=== PATIENT | female | born 1935 | race Caucasian/White ===

== ENCOUNTER 2019-11-06 10:21 | Inpatient (IN) ==
[2019-11-06] MEDS ORDERED: SALINE LOCK IV FLUID XX ONE (11:57)
--- NOTE | 2019-11-06 12:10 | EKG Report ---
Test Performed on : 11/06/2019 12:03:07 PM Test Reason : chest congestion Blood Pressure : / mmHG Vent. Rate : 077 BPM Atrial Rate : 077 BPM P-R Int : 136 ms QRS Dur : 086 ms QT Int : 372 ms P-R-T Axes : 077 -18 073 degrees QTc Int : 420 ms Normal sinus rhythm. with sinus arrhythmia. Normal ECG No previous ECGs available Confirmed by Forest Hsieh MD ([id number]) on 11/08/2019 5:14:45 PM
--- NOTE | 2019-11-06 12:17 | Diag Imaging Result Doc PS360 ---
EXAM: CHEST-PORTABLE 11/06/2019 HISTORY: chest congestion TECHNIQUE: AP portable upright at 1202 COMMENT: There are scattered nodules present in both lungs. This is particularly true around the lingula obscuring portions of the apex of the left ventricle. There is a hiatal hernia. There are atherosclerotic calcifications in the aortic arch. There are no previous studies available for comparison. IMPRESSION: Multiple pulmonary nodules bilaterally which may be related to granulomatous disease. Comparison with previous studies would be helpful however. Electronically signed by Misbah Zendejas 11/06/2019 12:15 PM
[2019-11-06 12:52] LABS: BASO# 0.02 X1000 (0.0-0.2); BASO% 0.2 % (0.0-0.8); EOS# 0.07 X1000 (0.0-0.7); EOS% 0.8 % (0.0-10.0); HEMOGLOBIN 11.3 g/dL (12.0-16.0); IMM GRAN# 0.03 X1000 (0.0-0.04); IMM GRAN% 0.3 % (0.0-0.5); LYMPH% 15.7 % (20.5-51.1); MCH 31.7 PG (27-31); MCHC 32.3 g/dL (33-37); MONO# 0.99 X1000 (0.11-0.59); MONO% 11.1 % (1.7-9.3); MPV 9.1 FL (7.4-10.4); NEUT# 6.42 X1000 (1.4-6.5); NEUT% 71.9 % (42.2-75.2); PLT 259 X1000 (130-400); RBC 3.57 XMIL (4.2-5.4); WBC 8.93 X1000 (4.8-10.8)
[2019-11-06 13:12] LABS: ALB/GLOB RATIO 1.4; ALBUMIN 3.9 g/dL (3.5-5.0); CALCIUM 10.1 mg/dL (8.8-10.2); CREATININE 1.5 mg/dL (0.5-0.9); TOTAL BILIRUBIN 0.49 mg/dL (0.20-1.00); TOTAL PROTEIN 6.7 g/dL (6.3-8.3)
[2019-11-06] MEDS ORDERED: LOVENOX SUBQ SCH (14:30)
[2019-11-06] MEDS: LOPRESSOR PO SCH ×3 (15:03→20:37)
[2019-11-06] MEDS: PRINIVIL PO SCH (15:04)
[2019-11-06] MEDS: LASIX IV SCH (15:05)
[2019-11-06] MEDS: LEVAQUIN 750 MG/D5W 750 MG/150 ML IVPB IV SCH (15:07)
[2019-11-06] MEDS: ELIQUIS PO SCH ×2 (15:35→20:37)
[2019-11-06] MEDS: TYLENOL PO PRN (18:26)
[2019-11-07] MEDS: TYLENOL PO PRN ×2 (01:22→08:49)
[2019-11-07] MEDS: LOPRESSOR PO SCH ×2 (08:49→22:26)
[2019-11-07] MEDS: ELIQUIS PO SCH ×2 (08:49→22:26)
[2019-11-07] MEDS: PRINIVIL PO SCH (08:49)
[2019-11-07] MEDS: LASIX IV SCH (08:50)
--- NOTE | 2019-11-07 11:42 | PROGRESS NOTE ---
DATE: 11/07/2019 Ms. Mcneill is doing better except that she has dehydration with significant BUN elevated and creatinine also. She has a DVT in the left leg. We are going to get the elastic stockings and will put her on Eliquis. Overall, the cellulitis is somewhat better. We will continue with the current management. cc: Luis Antonio Alfaro MD
[2019-11-07] MEDS: D5 1/2 NS + KCL 20 MEQ 1,000 ML IV SCH (13:06)
--- NOTE | 2019-11-07 13:26 | HISTORY AND PHYSICAL ---
HISTORY OF PRESENT ILLNESS: Ms Mcneill who is an 84-year-old white female, comes to the office with bilateral leg edema and significant cellulitis. She has severe arthritis involving the knees and hips as well as lumbosacral spine and has been wheelchair-bound at home. She lives by herself and moves around in the house in the wheelchair. However, she has not been able to manage herself lately. Hence, we decided to admit her to the hospital with severe cellulitis in both legs with gross edema. She has redness in the skin she noticed about 3 days ago and is getting worse. She has history of hypertension for a long time. She has been on lisinopril 20 mg and Lopressor 50 mg b.i.d. PAST SURGICAL HISTORY: Cataract removal, otherwise noncontributory. SOCIAL HISTORY: She is a nonsmoker, does not drink. ALLERGIES: She is not allergic to any medication. REVIEW OF SYSTEMS: Noncontributory except for multiple joint pains. PHYSICAL EXAMINATION: GENERAL: The patient is alert. VITAL SIGNS: Temperature normal, pulse 71 per minute, respiratory rate 20 per minute, blood pressure 133/97. HEENT: Head normocephalic. Pupils PERRLA. Fundus examination cannot be done. NECK: Supple JVP normal. ENT: Examination unremarkable. There is no evidence of lymphadenopathy, thyroid enlargement, cyanosis, or clubbing. EXTREMITIES: There is presence of anemia and bilateral leg edema. There is minimal calf tenderness on the left side. There is peripheral dehydration noted in the upper extremity skin, with dryness of mucous membranes. BREAST EXAM: Not done. CHEST: Normal on inspection. LUNGS: Clear on auscultation. PMI in the normal position. HEART: Sounds normal. No murmur, gallop or rub noted. ABDOMEN: Nondistended, hernial orifices normal. No guarding, rigidity, free fluid, masses, or organomegaly. Bowel sounds normal. RECTAL: Deferred. CENTRAL NERVOUS SYSTEM: Higher functions normal. Cranial nerves normal. Motor and sensory system examination unremarkable. Deep tendon reflexes normal. Plantars downgoing. Skull and spine examination normal for age. No cerebellar signs or signs of meningeal rigidity. LOCOMOTOR EXAM: Unremarkable. SKIN: Unremarkable. CLINICAL IMPRESSION: Bilateral severe stasis dermatitis with red hot tender skin and edema on both legs. Phlebitis or DVT cannot be ruled out. We will also check her out for congestive heart failure as she has longstanding history of hypertension. She has severe arthritis in both knees, hips and lumbosacral spine and is wheelchair bound. PLAN: Start IV Lasix, IV antibiotics, elevate the legs, get the venous flow studies. cc: Luis Antonio Alfaro MD
--- NOTE | 2019-11-07 14:02 | Extremity Venous Study ---
PROCEDURE NAME: Venous U/S Bilateral Legs - 11/06/2019 OPERATION: Bilateral lower extremity venous duplex study. DATE OF STUDY: 11/06/2019. REFERRING PHYSICIAN: Dominic. READING PHYSICIAN: Amber. RFP WRITER: Jaguar. INDICATION: Redness, pain and swelling of the legs. FINDINGS: The deep and superficial veins of the right lower extremity were imaged first. They are compressible, patent without thrombus. Next, the deep and superficial veins of the left lower extremity were imaged. The deep femoral, common femoral, superficial femoral veins were compressible, patent without thrombus, as well as the greater saphenous vein. However, there is thrombosis and non compressibility of the left popliteal, posterior tibial and peroneal veins. Of note, the left femoral vein also was noted to be atrophied. INTERPRETATION: Acute deep vein thrombosis of the left popliteal, posterior tibial, and peroneal veins. cc: MD Luis Antonio Bennett MD
[2019-11-07] MEDS: LEVAQUIN 750 MG/D5W 750 MG/150 ML IVPB IV SCH (16:30)
[2019-11-08] MEDS: PRINIVIL PO SCH (08:47)
[2019-11-08] MEDS: LOPRESSOR PO SCH ×2 (08:47→20:37)
[2019-11-08] MEDS: LASIX IV SCH (08:47)
[2019-11-08] MEDS: ELIQUIS PO SCH ×2 (08:47→20:37)
--- NOTE | 2019-11-08 09:47 | PROGRESS NOTE ---
DATE: 11/08/2019 SUBJECTIVE: The patient has no complaints. She says she is feeling better with her legs. OBJECTIVE: Vital Signs: Temperature 98.3 degrees Fahrenheit, pulse 77, respirations 18, blood pressure a little high at 161/81, oxygen saturation is 98% on room air. Blood pressure has been even a little higher at 189/67 earlier this morning. HEENT: She is normocephalic. EOMS intact. PERRLA. Throat clear. Lungs: Sound clear to auscultation and percussion without rhonchi, rales, or wheezes. Heart: Regular rate and rhythm without murmurs, gallops, or friction rubs. Abdomen: Soft, active bowel sounds. No organomegaly or tenderness. Neurological: Exam intact grossly. Extremities: Lower extremities show a little redness to both legs, but there is no swelling at this time. She has venous stasis and cellulitis, and has a DVT on the left that is an acute DVT. ASSESSMENT: 1. Acute deep venous thrombosis, left lower extremity. 2. Bilateral cellulitis and venous stasis of the lower extremities. 3. Questionable chronic kidney disease. Creatinine was 1.5 and glomerular filtration rate was only 33. I do not know for sure whether this is chronic or acute, we will check it again. PLAN: Continue antibiotics and Eliquis. We will try to control her blood pressure, but she has been restarted on blood pressure medication. cc: MD Lui sAntonio Duque Jr, MD
[2019-11-08] MEDS: D5 1/2 NS + KCL 20 MEQ 1,000 ML IV SCH (13:18)
[2019-11-08] MEDS: ULTRAM PO PRN (15:20)
[2019-11-08] MEDS: LEVAQUIN 750 MG/D5W 750 MG/150 ML IVPB IV SCH (15:20)
[2019-11-09] MEDS: D5 1/2 NS + KCL 20 MEQ 1,000 ML IV SCH ×3 (03:35→13:50)
[2019-11-09 05:41] LABS: BASO# 0.01 X1000 (0.0-0.2); BASO% 0.1 % (0.0-0.8); HEMATOCRIT 31.5 % (37.0-47.0); HEMOGLOBIN 10.1 g/dL (12.0-16.0); IMM GRAN# 0.03 X1000 (0.0-0.04); IMM GRAN% 0.3 % (0.0-0.5); LYMPH# 0.93 X1000 (1.2-3.4); LYMPH% 10.1 % (20.5-51.1); MCH 31.1 PG (27-31); MCHC 32.1 g/dL (33-37); MCV 96.9 FL (81-99); MONO# 0.78 X1000 (0.11-0.59); MONO% 8.5 % (1.7-9.3); MPV 9.3 FL (7.4-10.4); NEUT# 7.42 X1000 (1.4-6.5); PLT 281 X1000 (130-400); RBC 3.25 XMIL (4.2-5.4); RDW 12.7 % (11.5-14.5); WBC 9.17 X1000 (4.8-10.8)
[2019-11-09 06:04] LABS: CALCIUM 9.4 mg/dL (8.8-10.2); CREATININE 1.4 mg/dL (0.5-0.9); POTASSIUM 4.4 mmol/L (3.5-5.1)
[2019-11-09] MEDS: LOPRESSOR PO SCH ×2 (08:56→20:40)
[2019-11-09] MEDS: PRINIVIL PO SCH ×2 (08:56→20:40)
[2019-11-09] MEDS: ELIQUIS PO SCH ×2 (08:56→20:40)
[2019-11-09] MEDS: LASIX IV SCH (08:56)
--- NOTE | 2019-11-09 11:22 | PROGRESS NOTE ---
DATE: 11/09/2019 SUBJECTIVE: The patient says she feels fine, not hurting much in her legs. OBJECTIVE: Blood pressure is 162/96, was 180/66, respirations 18, pulse 78, temperature 98.2 degrees Fahrenheit. HEENT: She is normocephalic. EOMs intact. PERRLA. Throat clear. Lungs: Clear to auscultation and percussion without rhonchi, rales, or wheezes. Heart: Regular rate and rhythm without murmurs, gallops, or friction rubs. Abdomen: Soft. Active bowel sounds. No organomegaly or tenderness. Neurological Examination: Intact grossly. Not having much pain in her legs at this point. The redness is decreased. Has bilateral cellulitis in the lower extremities, also a DVT on the left. PLAN: Continue support and antibiotics. cc: MD Luis Antonio Duque Jr, MD
[2019-11-09] MEDS: LEVAQUIN 750 MG/D5W 750 MG/150 ML IVPB IV SCH (15:14)
[2019-11-09] MEDS: ULTRAM PO PRN (17:44)
[2019-11-09] MEDS: TYLENOL PO PRN (20:39)
[2019-11-10] MEDS: D5 1/2 NS + KCL 20 MEQ 1,000 ML IV SCH ×3 (02:25→15:21)
[2019-11-10 06:23] LABS: EOS# 0.02 X1000 (0.0-0.7); EOS% 0.2 % (0.0-10.0); HEMATOCRIT 29.3 % (37.0-47.0); HEMOGLOBIN 9.4 g/dL (12.0-16.0); IMM GRAN# 0.02 X1000 (0.0-0.04); IMM GRAN% 0.2 % (0.0-0.5); LYMPH# 1.15 X1000 (1.2-3.4); LYMPH% 11.1 % (20.5-51.1); MCH 31.4 PG (27-31); MCHC 32.1 g/dL (33-37); MONO# 0.94 X1000 (0.11-0.59); MONO% 9.1 % (1.7-9.3); MPV 9.2 FL (7.4-10.4); NEUT% 79.4 % (42.2-75.2); PLT 281 X1000 (130-400); RBC 2.99 XMIL (4.2-5.4); RDW 12.6 % (11.5-14.5); WBC 10.33 X1000 (4.8-10.8)
[2019-11-10 06:30] LABS: CALCIUM 9.3 mg/dL (8.8-10.2); CREATININE 1.3 mg/dL (0.5-0.9); POTASSIUM 3.8 mmol/L (3.5-5.1)
[2019-11-10] MEDS: LASIX IV SCH (08:56)
[2019-11-10] MEDS: ELIQUIS PO SCH ×2 (08:56→21:19)
[2019-11-10] MEDS: PRINIVIL PO SCH ×2 (08:56→21:19)
[2019-11-10] MEDS: LOPRESSOR PO SCH ×2 (08:57→21:19)
--- NOTE | 2019-11-10 09:34 | PROGRESS NOTE ---
DATE: 11/10/2019 Ms. Mcneill has severe difficulty in walking from arthritis. Her stasis dermatitis is much improved. She has a DVT. She is on Eliquis. We are going to start physical therapy and probably transfer her for rehab. cc: Luis Antonio Alfaro MD
[2019-11-10] MEDS: LEVAQUIN 750 MG/D5W 750 MG/150 ML IVPB IV SCH (15:27)
[2019-11-11 05:28] LABS: EOS# 0.02 X1000 (0.0-0.7); EOS% 0.2 % (0.0-10.0); HEMATOCRIT 30.4 % (37.0-47.0); HEMOGLOBIN 9.8 g/dL (12.0-16.0); IMM GRAN# 0.03 X1000 (0.0-0.04); IMM GRAN% 0.3 % (0.0-0.5); LYMPH# 1.04 X1000 (1.2-3.4); LYMPH% 10.5 % (20.5-51.1); MCH 31.3 PG (27-31); MCHC 32.2 g/dL (33-37); MCV 97.1 FL (81-99); MONO# 0.98 X1000 (0.11-0.59); MONO% 9.9 % (1.7-9.3); MPV 9.1 FL (7.4-10.4); NEUT# 7.79 X1000 (1.4-6.5); NEUT% 79.1 % (42.2-75.2); PLT 289 X1000 (130-400); RBC 3.13 XMIL (4.2-5.4); RDW 12.6 % (11.5-14.5); WBC 9.86 X1000 (4.8-10.8)
[2019-11-11 05:48] LABS: CALCIUM 9.6 mg/dL (8.8-10.2); CREATININE 1.1 mg/dL (0.5-0.9); POTASSIUM 3.8 mmol/L (3.5-5.1)
--- NOTE | 2019-11-11 09:26 | PROGRESS NOTE ---
DATE: 11/11/2019 Ms. Mcneill is doing better. She has severe arthritis in the knees and hips. She has DVT in the left leg. She is on Eliquis as well as elastic stockings. Cellulitis is much better. We are going to discharge her to rehab today. cc: Luis Antonio Alfaro MD
--- NOTE | 2019-11-11 09:34 | DISCHARGE SUMMARY ---
ADMISSION DATE: 11/07/2019 DISCHARGE DATE: 11/11/2019 HISTORY OF PRESENT ILLNESS: Ms. Mcneill, who is an 84-year-old, white female, was admitted with severe cellulitis of both legs. LABORATORY DATA: In the hospital, extremity venous flow studies revealed the presence of left popliteal as well as posterior tibial acute thrombosis. CBC revealed white count was 10.33, hemoglobin 11.3 which came down to 9.4. Electrolytes are normal. BUN was 31, came down to 24. Creatinine from 1.4 to 1.1. Blood sugar was 120. ProBNP was only 334. COURSE IN THE HOSPITAL: She was given IV Lasix and IV Rocephin. Cellulitis improved significantly. She had DVT. Elastic stockings were given. She was kept on Eliquis and she will be transferred to [facility] today. FINAL DIAGNOSES: 1. Deep venous thrombosis of left leg. 2. Severe cellulitis of both legs. 3. Osteoarthritis of both knees. 4. Hypertension. 5. Early dementia. cc: Luis Antonio Alfaro MD
[2019-11-11] MEDS: PRINIVIL PO SCH (09:38)
[2019-11-11] MEDS: ULTRAM PO PRN (09:38)
[2019-11-11] MEDS: LOPRESSOR PO SCH (09:38)
[2019-11-11] MEDS: ELIQUIS PO SCH (09:38)
[2019-11-11] MEDS: D5 1/2 NS + KCL 20 MEQ 1,000 ML IV SCH (09:43)
[2019-11-11 11:40] VITALS: BP 143/60
[2019-11-12] MEDS ORDERED: LEVAQUIN PO SCH (09:00)
[2019-11-12] MEDS ORDERED: LASIX LIQUID PO SCH (09:00)
== END 2019-11-11 14:50 | DRG 603 ==
LOC: DIRADM 10:21 → EDIPHOLD 11:14 → 1N 15:15
PROVIDERS: ADMIT Internal Medicine; ATTEND Internal Medicine